=== PATIENT | female | born 1950 | race African-American/Black ===

== ENCOUNTER 2018-10-17 04:24 | Inpatient (IN) | payer MEDICARE, MEDICAID ==
[2018-10-17 04:52] VITALS: BP 130/62
[2018-10-17] MEDS ORDERED: Magnesium Hydroxide (MOM) 30 mL UDC PO PRN (04:52)
[2018-10-17] MEDS: Multivitamin Tab PO SCH (10:21)
[2018-10-18] MEDS: Multivitamin Tab PO SCH (09:05)
--- NOTE | 2018-10-18 13:21 | History & Physical ---
ADMIT DATE: 10/17/2018 REASON FOR ADMISSION: Psychiatric disorder. HISTORY OF PRESENT ILLNESS: This is a 68-year-old female admitted to [facility] unit for underlying psychiatric illness by Dr. Hatfield. Dr. Hatfield requested medical H and P on this patient. PAST MEDICAL HISTORY: Denies any. PAST SURGICAL HISTORY: Negative. PAST FAMILY HISTORY: Negative. SOCIAL HISTORY: Lives at home. Denies any alcohol or tobacco use. MEDICATION: MAR. ALLERGIES: PENICILLIN. REVIEW OF SYSTEMS: No fever, no chills, no headache, no nausea, no abdominal pain, no chest pain or trouble breathing. PHYSICAL EXAMINATION: VITAL SIGNS: Temperature 97.6, pulse 76, respirations 20, blood [id number] HEENT: Unremarkable. HEART: S1, S2 normal. LUNGS: Clear. ABDOMEN: Soft. ASSESSMENT: 1. Mental status. 2. Insomnia. PLAN: The patient admitted to [facility] for evaluation by the psychiatrist. The patient is medically stable. Continue psychotropic medications. [facility]# [id number] [facility]IT[facility]
--- NOTE | 2018-10-18 13:21 | Psychiatric Evaluation ---
DATE OF SERVICE: 10/17/2018 PATIENT'S AGE: 68. SEX: Female. PHYSICIAN: Dr. Wilfred Hatfield. CHIEF COMPLAINT: 5150 hold for dangerous to herself and grave disability. HISTORY OF PRESENT ILLNESS: The patient was placed on 5150 hold by the police for dangers to self and grave disability after the patient was seen running in and out of the roads exposing herself to dangerous situation. The patient told Sr Account Executive that there is a pot hole in the street and that she was walking in the street to fix it. The patient also was jumping in and out of traffic and was unable to care for self, according to the hold. Chart reviewed and the patient interviewed. The patient has a history of schizophrenia. The patient has been paranoid and suspicious and it seemed that the patient has not been taking her psych medications. She also seems to be agitated and has been in angry and irritable mood. Also, she has not been able to care for herself. The patient is homeless and she was not able to give me any information about their living situation. PAST PSYCHIATRIC HISTORY: According to the chart, the patient has history of schizophrenia, but it seems that the patient has not been taking care of herself or her needs. PAST MEDICAL HISTORY: The patient denied. SOCIAL HISTORY: The patient is homeless. The patient is unable to give me any more information at this time about any other information. She has no known alcohol or drug use. ALLERGIES: No known allergies. MENTAL STATUS EXAMINATION: The patient appears older than her stated age. Disheveled. Flat affect. Irritable mood. Disorganized thoughts. Thought processes are with poverty of speech. The patient denied any auditory or visual hallucinations, but actively responding to stimuli. The patient denied any thoughts of suicide or homicide. The patient is alert and oriented to situation, but not to the place or person or date. Unable to assess her memory at this time because of her confusion and her irritability. Poor insight. Poor judgment. ASSESSMENT: PRIMARY DIAGNOSIS: Chronic paranoid schizophrenia with acute exacerbation. TREATMENT PLAN: We will monitor the patient's behavior and condition closely. We will start individual as well as milieu psychotherapy. We will start the patient on Seroquel and we will adjust the dose. ESTIMATED LENGTH OF STAY: 5-7 days. THE PATIENT'S STRENGTHS AND WEAKNESSES: The patient seems to be in relatively fair health. Weaknesses is poor judgment and ineffective and noncompliance with treatment medications. AFTER DISCHARGE PLAN: Outpatient treatment and followup will continue as an outpatient and the patient will need placement. CRITERIA FOR DISCHARGE: The patient will not be psychotic and will stabilize on psychotropic medications and will establish outpatient treatment plans. [facility]# [id number]
--- NOTE | 2018-10-19 03:18 | Progress Notes ---
DATE: 10/18/2018 The patient was evaluated and examined. Covering for Dr. Hatfield. IDENTIFYING DATA: A 68-year-old female brought in here on a 5150 by the police after the patient was seen running in and out of the road, exposing herself to danger situation. Overnight, the patient was observed to be irritable, agitated, argumentative, severe mood swings and demanding. She has been intermittently refusing Seroquel and unpredictable. Today on [id number] evaluation, the patient easily tearful upon approach, perseverating with racing thoughts and labile. Needing a lot of redirection to maintain a simple conversation. MENTAL STATUS EXAMINATION: Irritable, agitated, hyperverbal, hypersexual. ASSESSMENT AND PLAN: Due to the patient's ongoing labile behavior secondary to the patient's manic state and intermittently refusing medication, may consider [place] the patient on Saturday when [place] [facility] [place] [employer] courts are open. In the meantime, we will continue validating the patient's emotions and redirecting patient until she starts taking medications JOB# [id number]
[2018-10-19] MEDS: Multivitamin Tab PO SCH (09:52)
--- NOTE | 2018-10-20 03:30 | Progress Notes ---
DATE: 10/19/2018 SUBJECTIVE: The patient was seen and evaluated. The patient's chart reviewed. Covering for Dr. Hatfield. Overnight nursing staff reported that the patient continued with poor sleep, easily agitated. Today on [id number] evaluation, the patient is yelling, screaming incoherently and also starts posturing and getting angry and we ordered emergent medication because of the aggressive behavior. MENTAL STATUS EXAMINATION: Psychotic, agitated, resulting in posturing and aggressive behavior towards others. ASSESSMENT AND PLAN: The patient with ongoing paranoia and suspicious behavior resulting in aggressive behavior, unable to formulate a safe plan. We will continue increasing the Seroquel to 50 mg p.o. t.i.d. We have given the patient emergent medications at this point to help alleviate the patient's aggressive state and constant paranoia. JOB# [id number]
[2018-10-20] MEDS ORDERED: Haloperidol Lactate 5 mg/mL 1mL Vial IM ONE (08:51)
[2018-10-20] MEDS ORDERED: Haloperidol Lactate 5 mg/mL 1mL Vial ONE (08:53)
[2018-10-20] MEDS: Multivitamin Tab PO SCH (09:01)
--- NOTE | 2018-10-20 21:47 | General Progress Note ---
Subjective - Review of Systems Service Date: 10/20/18 Subjective: Patient doing fine denied any complaints Objective - Physical Exam Vitals and I&O: Vital Signs Temp 98.0 F 10/20/18 20:43 Pulse 101 10/20/18 20:43 Resp 20 10/20/18 20:43 BP 121/58 10/20/18 20:43 Pulse Ox 97 10/20/18 20:43 Intake & Output 10/20/18 10/20/18 10/21/18 06:59 18:59 06:59 Intake Total 480 1200 280 Balance 480 1200 280 Intake: Oral 480 1200 280 Other: # Voids 2 3 2 # Bowel Movements 0 1 1 Stool Characteristics Soft Soft Brown Brown Active Medications: Current Medications Acetaminophen (Tylenol) 650 mg PO Q4HR PRN PRN Reason: Mild Pain / Temp above 100 Stop: 12/16/18 04:51 Last Admin: 10/20/18 17:05 Dose: 650 mg Al Hydrox/Mg Hydrox/Simethicone (Maalox) 30 ml PO Q4HR PRN PRN Reason: GI DISTRESS Stop: 12/16/18 04:51 Lorazepam (Ativan) 0.5 mg PO Q4HR PRN; Protocol PRN Reason: Agitation Stop: 11/16/18 04:51 Last Admin: 10/20/18 17:05 Dose: 0.5 mg Magnesium Hydroxide (Milk Of Magnesia) 30 ml PO HS PRN PRN Reason: Constipation Multivitamins/Vitamin C (Theragran) 1 tab PO DAILY ENEIDA Stop: 12/16/18 08:59 Last Admin: 10/20/18 09:01 Dose: 1 tab Risperidone (Risperdal) 2 mg PO HS ENEIDA; Protocol Stop: 12/19/18 20:59 Last Admin: 10/20/18 20:48 Dose: 2 mg Risperidone (Risperdal) 1 mg PO DAILY ENEIDA; Protocol Stop: 12/19/18 08:59 Last Admin: 10/20/18 09:00 Dose: 1 mg Zolpidem Tartrate (Ambien) 5 mg PO HS PRN PRN Reason: Insomnia Stop: 12/16/18 04:51 Last Admin: 10/19/18 22:00 Dose: 5 mg Cardiovascular: Regular rate Lungs: Clear to auscultation Assessment/Plan - Assessment Assessment: Nicotine dependancy Psych disorder - Plan Plan: SMoking cessation advised Psych follow up
[2018-10-21] MEDS: Multivitamin Tab PO SCH (09:06)
[2018-10-21] MEDS: Maalox 30 mL Cup PO PRN ×2 (10:15→21:34)
--- NOTE | 2018-10-21 11:01 | Progress Notes ---
DATE: 10/20/2018 SUBJECTIVE: Chart reviewed and the patient interviewed. I also discussed the patient's condition with the staff and reviewed records and labs. The patient is easily agitated. The patient also is still intrusive to others and she is wandering around the unit, talking to herself and talking to other patients and disturbing them. She also still has difficulty with following directions. She also is still hyperverbal and she is still at times refusing Seroquel, but agreeing to take Risperdal. The patient also aggressive with the staff and she is posturing at times to staff. ASSESSMENT: The patient is still aggressive and labile. TREATMENT PLAN: We will continue to monitor her behavior and her condition closely. Also, we will continue working on behavioral modification. Also, we will discontinue Seroquel and we will start the Risperdal 1 mg in the morning and 2 mg at bedtime and continue to follow up. [facility]# [id number]
--- NOTE | 2018-10-21 19:09 | Progress Notes ---
DATE: 10/21/2018 SUBJECTIVE: Chart reviewed and the patient interviewed. Also discussed the patient's condition with the staff and reviewed records and labs. The patient continued to exhibit manic behavior. The patient is still restless and is still in irritable mood. She also continued to resisting care. She also is still hyperverbal and she is still in angry mood and had grandiose delusions ongoing around talked about her [employer] and also interrupting others. On the other hand, the patient is compliant with taking her medications with no side effects of medications. ASSESSMENT: The patient is still exhibiting manic behavior. TREATMENT PLAN: Continue to monitor her behavior and condition closely. Also, we will increase Risperdal to 1 mg twice a day and 2 mg at bedtime. Also, continue to work on her behavior and her manic symptoms. Also, we will add trazodone in a dose of 50 mg at bedtime to help the patient to sleep better at night and hopefully to help with her manic symptoms. [facility]# [id number]
[2018-10-22] MEDS ORDERED: Haldol Oral Sol.(concentrate) 10 mg/5 mL Udc PO ONE (05:17)
[2018-10-22] MEDS: Multivitamin Tab PO SCH (08:17)
[2018-10-22] MEDS: Haldol Oral Sol.(concentrate) 10 mg/5 mL Udc PO SCH ×3 (08:17→20:39)
[2018-10-22] MEDS: Maalox 30 mL Cup PO PRN (10:16)
--- NOTE | 2018-10-23 03:56 | Progress Notes ---
DATE: 10/22/2018 SUBJECTIVE: Chart reviewed and the patient interviewed. Also, discussed the patient's condition with the staff and reviewed records and labs. The patient is still extremely agitated and manicky and the patient had to be given Haldol 5 mg earlier in order to calm her down. The patient is still restless and is still angry and in irritable mood. The patient also is suspicious and is paranoid. She also still has difficulty with her mood and she still needs lots of redirections. She also is intrusive to others. Otherwise, the patient is cooperative and compliant with taking her medications with no side effects of medications. ASSESSMENT: The patient is still psychotic and is still in irritable mood. TREATMENT PLAN: We will continue to monitor her behavior closely. Also, we will add Haldol in a dose of 5 mg 3 times a day and we will monitor the dose. Also, continue to work on her ineffective coping and her agitation and irritability. JOB# [id number]
[2018-10-23] MEDS: Haldol Oral Sol.(concentrate) 10 mg/5 mL Udc PO SCH ×3 (08:15→20:43)
[2018-10-23] MEDS: Multivitamin Tab PO SCH (08:19)
--- NOTE | 2018-10-23 22:54 | Progress Notes ---
DATE: SUBJECTIVE: Chart reviewed and the patient interviewed. Also discussed the patient's condition with the staff and reviewed records and labs. The patient continued to be in irritable and angry mood. The patient is still easily agitated and she is still demanding and is intrusive to others. The patient also is hyperverbal and she is still unable to carry on coherent conversation and because of her rambling and being intrusive, easily agitated. The patient also was yelling and screaming earlier and has still had difficulty redirecting her. Otherwise, the patient is compliant with taking her medications and also the patient had no side effects of medications, but she is demanding to get Cogentin. She continued to comply with taking Risperdal and Haldol with no side effects. ASSESSMENT: The patient is still agitated and is still psychotic. TREATMENT PLAN: Continue to monitor her behavior and her condition and continue to work on her anger and irritability and also continue to adjust psychotropic medications. JOB# [id number]
[2018-10-24] MEDS: Multivitamin Tab PO SCH (08:25)
[2018-10-24] MEDS: Haldol Oral Sol.(concentrate) 10 mg/5 mL Udc PO SCH ×3 (08:26→20:59)
--- NOTE | 2018-10-25 04:12 | Progress Notes ---
DATE: SUBJECTIVE: Chart reviewed and the patient interviewed. Also discussed the patient's condition with the staff and reviewed records and labs. The patient is still anxious and is still in an irritable mood. The patient also is still restless and she is still easily agitated and she is intrusive to others. She also still has episodes of anger with yelling at times and intrusive to other patients. Otherwise, the patient is compliant with taking her medications with no side effect of medications. The patient is complaining of a hernia pain in her right. ASSESSMENT: The patient is still agitated and still needs lots of redirections. TREATMENT PLAN: Continue to monitor her behavior and her condition closely. Also, continue to work on her behavior and being intrusive and continue to work on her manic behavior. JOB# [id number]
[2018-10-25] MEDS: Multivitamin Tab PO SCH (08:47)
[2018-10-25] MEDS: Haldol Oral Sol.(concentrate) 10 mg/5 mL Udc PO SCH ×3 (08:47→21:19)
[2018-10-25] MEDS: Maalox 30 mL Cup PO PRN (17:03)
--- NOTE | 2018-10-25 21:34 | General Progress Note ---
Subjective - Review of Systems Service Date: 10/25/18 Subjective: Patient doing fine no new medical concern noted Objective - Physical Exam Vitals and I&O: Vital Signs Temp 97.3 F 10/25/18 20:00 Pulse 100 10/25/18 20:00 Resp 20 10/25/18 20:00 BP 110/62 10/25/18 20:00 Pulse Ox 99 10/25/18 20:00 Intake & Output 10/25/18 10/25/18 10/26/18 06:59 18:59 06:59 Intake Total 660 1000 Balance 660 1000 Intake: Oral 660 1000 Other: # Voids 2 4 # Bowel Movements 0 1 Active Medications: Current Medications Acetaminophen (Tylenol) 650 mg PO Q4HR PRN PRN Reason: Mild Pain / Temp above 100 Stop: 12/16/18 04:51 Last Admin: 10/25/18 08:47 Dose: 650 mg Al Hydrox/Mg Hydrox/Simethicone (Maalox) 30 ml PO Q4HR PRN PRN Reason: GI DISTRESS Stop: 12/16/18 04:51 Last Admin: 10/25/18 17:03 Dose: 30 ml Benztropine Mesylate (Cogentin) 1 mg PO BID ENEIDA Stop: 12/22/18 08:59 Last Admin: 10/25/18 17:07 Dose: 1 mg Haloperidol Lactate (Haldol Concentrate 10mg/5ml Susp) 5 mg PO TID ENEIDA; Protocol Stop: 12/21/18 08:59 Last Admin: 10/25/18 21:19 Dose: 5 mg Magnesium Hydroxide (Milk Of Magnesia) 30 ml PO HS PRN PRN Reason: Constipation Multivitamins/Vitamin C (Theragran) 1 tab PO DAILY ENEIDA Stop: 12/16/18 08:59 Last Admin: 10/25/18 08:47 Dose: 1 tab Risperidone (Risperdal) 2 mg PO HS ENEIDA; Protocol Stop: 12/19/18 20:59 Last Admin: 10/25/18 21:19 Dose: 2 mg Risperidone (Risperdal) 1 mg PO BID ENEIDA; Protocol Stop: 12/20/18 08:59 Last Admin: 10/25/18 17:08 Dose: 1 mg Trazodone HCl (Desyrel) 50 mg PO HS ENEIDA; Protocol Stop: 12/20/18 20:59 Last Admin: 10/25/18 21:25 Dose: 50 mg Cardiovascular: Regular rate Lungs: Clear to auscultation Assessment/Plan - Assessment Assessment: Nicotine dependancy Psych disorder - Plan Plan: Medically stable Continue current treatment Nutritional Asmnt/Malnutr-PDOC - Dietary Evaluation Malnutrition Findings (Please click <Entered> for more info): Nutritional Asmnt/Malnutrition Start: 10/21/18 08: 50 Text: Status: Complete Freq: Protocol: Document 10/21/18 08:52 ОЛЬГА (Rec: 10/21/18 09:02 ОЛЬГА [id number]) Nutritional Asmnt/Malnutrition Patient General Information Nutritional Screening Moderate Risk Diagnosis psychosis Pertinent Medical Hx/Surgical Hx pt denied per H&P Subjective Information Pt seen sitting in dining room chatting with other patient. Per EMR, PO intake 100%. Current Diet Order/ Nutrition Support soft chopped Pertinent Medications theragran Pertinent Labs no labs available Nutritional Hx/Data Height 1.63 m Height (Calculated Centimeters) 162.6 Current Weight (lbs) 72.575 kg Weight (Calculated Kilograms) 72.6 Weight (Calculated Grams) 43638.8 Body Mass Index (BMI) 27.4 GI Symptoms GI Symptoms None Last BM 10/21 Difficult in: None Skin Integrity/Comment: intact Current %PO Good (75-100%) Estimated Nutritional Goals BEE in Kcals: Using Current wt Calories/Kcals/Kg 23-27 Kcals Calculated 0245-2084 Protein: Using Current wt Protein g/k.8 Protein Calculated 58 Fluid: ml 1679-1971ml (1ml/kcal) Nutritional Problem No current Nutrition Prob Problem N/A Malnutrition Alert Is there a minimum of two criteria No selected? Query Text:Check all the applicable criteria. A minimum of two criteria are recommended for diagnosis of either severe or non-severe malnutrition. Malnutrition Related to Morbid Obesity Malnutrition related to morbid obesity No Intervention/Recommendation Comments 1. Continue with soft chopped diet as ordered. 2. Monitor PO intake, wt, labs and skin integrity 3. F/U as low risk in 7 days Expected Outcomes/Goals Expected Outcomes/Goals 1. PO intake to meet at least 75% of nutritional needs. 2. Wt stability, skin to remain intact, labs to approach WNL.
--- NOTE | 2018-10-26 04:40 | Progress Notes ---
DATE: 10/25/[address] Hatfield. Case was discussed with staff of the patient, reviewed records. This is a 68-year-old female who was admitted on 10/17/2018 on a hold for danger to self, grave disability. The patient was running in and out of the roads, exposing herself to danger situation. She told Programming Development Project Manager that there is a pot hole in the street and that she was walking in the street to fix it. The patient was also jumping in and out of traffic, and was unable to care for herself. The patient with a history of schizophrenia, was paranoid, suspicious, not taking her medication. The patient continues to have poor insight, continues to be anxious, irritable, continues to be restless, easily agitated, intrusive, angry, yelling at times. She has been compliant with the medication with no side effects, no sedation, no nausea, no extrapyramidal symptoms. She is on Cogentin 1 mg twice a day, Haldol 5 mg 3 times a day, Risperdal 2 mg at bedtime and 1 mg twice a day, trazodone 50 mg at bedtime. I will continue the patient in group therapy, milieu therapy, and adjust medication as needed. JOB# [id number]
[2018-10-26] MEDS: Haldol Oral Sol.(concentrate) 10 mg/5 mL Udc PO SCH ×3 (09:19→20:12)
[2018-10-26] MEDS: Multivitamin Tab PO SCH (09:20)
--- NOTE | 2018-10-26 15:47 | Progress Notes ---
DATE: 10/26/[address] Hatfield. Case was discussed with staff of the patient, reviewed records. The patient continues to be confused, continues to be unpredictable, impulsive, demented, paranoid, continues to be unable to take care of herself or make safe plan for self-care. Continues to be easily agitated, angry. She has been compliant with the medication with no side effects, no sedation, no nausea, no extrapyramidal symptoms and we will continue to work with the patient in group therapy, milieu therapy, and adjust the medication as needed. JOB# [id number]
[2018-10-26] MEDS: Maalox 30 mL Cup PO PRN (20:12)
[2018-10-27] MEDS: Haldol Oral Sol.(concentrate) 10 mg/5 mL Udc PO SCH ×3 (08:54→20:34)
[2018-10-27] MEDS: Multivitamin Tab PO SCH (08:55)
[2018-10-27] MEDS: Maalox 30 mL Cup PO PRN ×2 (09:59→14:29)
[2018-10-27] MEDS ORDERED: Haloperidol Lactate 5 mg/mL 1mL Vial IM ONE (18:18)
[2018-10-27] MEDS ORDERED: Haloperidol Lactate 5 mg/mL 1mL Vial ONE (18:22)
--- NOTE | 2018-10-27 22:52 | Progress Notes ---
DATE: 10/27/2018 SUBJECTIVE: Case was discussed with staff of the patient, reviewed records. The patient continues to look disheveled, disorganized, and internally preoccupied. Continues to have poor insight. Unable to make safe plan for self-care. Staff is working on placement for this patient. She is sleeping better, eating better. No side effects from the medication, no sedation, no nausea, no extrapyramidal symptoms. We will continue to work with the patient in group therapy, milieu therapy, and adjust medication as needed. JOB# [id number]
[2018-10-28] MEDS: Maalox 30 mL Cup PO PRN ×2 (02:29→20:17)
[2018-10-28] MEDS: Haldol Oral Sol.(concentrate) 10 mg/5 mL Udc PO SCH (09:23)
[2018-10-28] MEDS: Multivitamin Tab PO SCH (09:24)
--- NOTE | 2018-10-28 13:22 | Progress Notes ---
DATE: 10/28/2018 Case was discussed with staff of the patient, reviewed records. The patient continues to be disorganized. today, she asked me to get out of her face. Continues to have poor insight. Unable to make safe plan for herself, unpredictable, impulsive, and needing redirection. She is also working on placement for this patient and no sedation, no nausea, no extrapyramidal symptoms. We will continue to work with the patient in group therapy, milieu therapy, and adjust the medication as needed. JOB# [id number] MTDKeshia
[2018-10-29] MEDS: Multivitamin Tab PO SCH (09:16)
--- NOTE | 2018-11-01 00:13 | Discharge Summary ---
DATE OF DISCHARGE: 10/29/2018 PATIENT'S AGE: 68-year-old. SEX: Female. PHYSICIAN: Dr. Hatfield. FINAL DIAGNOSES: Primary diagnoses: Bipolar disorder, manic episode, severe, with psychotic features. REASON FOR HOSPITALIZATION: The patient was admitted to the hospital because of increased agitation, increased irritability and also she was having thoughts of suicide and she was placed on hold for dangers to self and grave disability. HOSPITAL COURSE: The patient continued to be agitated and restless. The patient also continued to be intrusive to others and she was in angry mood and having severe mood swings. She also was not able to comply with taking her medications in the beginning of the treatment, but the patient later on agreed to take Risperdal and is off Seroquel and the dose adjusted to 2 mg at bedtime and 1 mg twice a day. The patient also was given trazodone 50 mg at bedtime. The patient was still agitated and in irritable mood. The patient was given Haldol in a dose of 5 mg 3 times a day as well as Cogentin 1 mg twice a day. Gradually, the patient's affect was brighter. The patient was calmer and was easier to redirect her. The patient also was accepted in [facility] to continue her treatment there and the patient was discharged there. Physical exam of the patient showed no major medical problem while in the hospital. The patient was easier to redirect and she was able to follow up with the instructions for the discharge and the patient was discharged there. AFTER DISCHARGE PLANS: The patient went to [facility] with plans to follow her up there. EXPECTED OUTCOME AFTER DISCHARGE: Fair if the patient continued to take her psychotropic medications and follow up with discharge plans. [facility]# [id number]
== END 2018-10-29 17:00 | DRG 885 ==
LOC: GERO 04:24
PROVIDERS: ADMIT Psychiatry & Neurology Psychiatry; ATTEND Psychiatry & Neurology Psychiatry
DX: F31.2 Bipolar disorder, current episode manic severe with psychotic features (principal); G47.00 Insomnia, unspecified; F17.210 Nicotine dependence, cigarettes, uncomplicated; Z59.0 Homelessness; Z88.0 Allergy status to penicillin
CPT/HCPCS: 83036-90; G0410; J1200; J1630; J2060; Z7610